=== PATIENT | female | born 1970 | race Caucasian/White ===

== ENCOUNTER 2016-10-11 12:56 | Emergency (ER) | payer BC ==
[2016-10-11 15:16] VITALS: BP 107/68
--- NOTE | 2016-10-11 15:33 | UC ---
Lower Extremity/Ankle HPI - HPI Summary HPI Summary: complaint of pain in left foot thinks she stepped on a piece of glass 2days ago tried to get the glass out but once in a while she has pain in her foot some bleeding on the first day not taking any medications for pain - History of Current Complaint Chief Complaint: UCLowerExtremity Stated Complaint: LEFT FOOT COMPLAINT Time Seen by Provider: 10/11/16 15:08 Hx Obtained From: Patient Hx Last Menstrual Period: CURRENT - Allergies/Home Medications Allergies/Adverse Reactions: Allergies Allergy/AdvReac Type Severity Reaction Status Date / Time Azithromycin Allergy Hives Verified 10/11/16 15:17 Fluconazole [From Diflucan] Allergy Hives Verified 10/11/16 15:17 Naproxen [From Aleve] AdvReac Unknown lightheaded Verified 10/11/16 15:17 ness,dizzin ess PMH/Surg Hx/FS Hx/Imm Hx Previously Healthy: Yes Endocrine History Of: Reports: Thyroid Disease - hypothryroidism Cardiovascular History Of: Denies: Cardiac Disorders, Hypertension, Pacemaker/ICD, Myocardial Infarction , Congestive Heart Failure, Atrial Fibrillation, Deep Vein Thrombosis, Bleeding Disorders Respiratory History Of: Denies: COPD, Asthma, Bronchitis, Pneumonia, Pulmonary Embolism GI/ History Of: Denies: Gastroesophageal Reflux, Ulcer, Gastrointestinal Bleed, Gall Bladder Disease, Kidney Stones, Diverticulitis, Renal Disease, Urosepsis Neurological History Of: Denies: TIA, CVA, Dementia, Seizures, Migraine Psychological History Of: Denies: Anxiety, Depression, Bipolar Disorder, Schizophrenia, Post Traumatic Stress Disorder Cancer History Of: Denies: Lung Cancer, Colorectal Cancer, Breast Cancer, Prostate Cancer, Cervical Cancer - Surgical History Surgical History: Yes Surgery Procedure, Year, and Place: 3 ,tubal ligation. carpal tunnel R. deviated septum. Adenoidectomy. Gall bladder surgery, 05/19 - Family History Known Family History: Positive: Cardiac Disease, Hypertension, Diabetes, Other - no hx HAE - Social History Occupation: Employed Full-time Lives: With Family Alcohol Use: None Substance Use Type: None Smoking Status (MU): Never Smoked Tobacco Review of Systems Constitutional: Negative Skin: Negative Eyes: Negative ENT: Negative Respiratory: Negative Cardiovascular: Negative Gastrointestinal: Negative Genitourinary: Negative Motor: Negative Neurovascular: Negative Musculoskeletal: Other: - left foot pain Neurological: Negative Psychological: Negative All Other Systems Reviewed And Are Negative: Yes Physical Exam Triage Information Reviewed: Yes Appearance: No Pain Distress, Well-Nourished Vital Signs: Initial Vital Signs Temp 98.4 F 10/11/16 15:10 Pulse 84 10/11/16 15:10 Resp 14 10/11/16 15:10 BP 107/68 10/11/16 15:10 Pulse Ox 97 10/11/16 15:10 Vital Signs Reviewed: Yes Respiratory: Positive: Lungs clear, Normal breath sounds, No respiratory distress Cardiovascular: Positive: RRR, No Murmur Neurological: Positive: Alert Psychological Exam: Normal Skin: Positive: Other - left foot - small pice of glass 4mm x2mm removed from the 3rd toe mound bottom of foot with splinter forceps Lower Extremity Course/Dx - Differential Dx/Diagnosis Differential Diagnosis/HQI/PQRI: Foreign Body Provider Diagnoses: foreign body in left foot Discharge - Discharge Plan Condition: Stable Disposition: HOME Patient Education Materials: Soft Tissue Foreign Body (ED) Referrals: Marlon Poe MD [Primary Care Provider] - Additional Instructions: keep wound clean and dry look for signs of infection which include swelling, redness drainage or you get a fever Please review your discharge instructions. If your symptoms do not improve please call your primary care provider or return to urgent care
== END 2016-10-11 16:20 | disposition home or self-care (01) ==
LOC: UCCORT 12:56
DX: S90.852A Superficial foreign body, left foot, initial encounter (principal); W45.8XXA Other foreign body or object entering through skin, initial encounter; W25.XXXA Contact with sharp glass, initial encounter; Y93.9 Activity, unspecified; Y92.9 Unspecified place or not applicable; Z88.6 Allergy status to analgesic agent; Z88.1 Allergy status to other antibiotic agents; Z90.49 Acquired absence of other specified parts of digestive tract
CPT/HCPCS: 99211; G0463